=== PATIENT | female | born 1965 | race African-American/Black ===

== ENCOUNTER 2017-04-16 08:56 | Emergency (ER) | payer OTHER ==
[~2017-04-16] VITALS: Ht 167.6 cm; Wt 104.3 kg
[2017-04-16 11:39] VITALS: BP 141/100
== END 2017-04-16 11:39 | disposition home or self-care (01) ==
LOC: ED 08:56
DX: K08.89 Other specified disorders of teeth and supporting structures (principal); I10 Essential (primary) hypertension; F15.10 Other stimulant abuse, uncomplicated
CPT/HCPCS: J1885

== ENCOUNTER 2017-05-10 21:40 | Inpatient (IN) | payer OTHER ==
[~2017-05-10] VITALS: Ht 167.6 cm; Wt 102.0 kg
[2017-05-10 22:46] LABS: BASOPHIL % 1.6 % (0-2); RED CELL DISTRIBUTION WIDTH 12.1 % (11.5-14.5)
[2017-05-10 22:47] LABS: PLATELET COUNT 438 x10^3mcL (130-400)
[2017-05-10 22:48] LABS: CALCIUM 9.4 mg/dL (8.5-10.1); CARBON DIOXIDE 26.1 mmol/L (21-32); CHLORIDE SERUM 105 mmol/L (98-107); CREATININE SERUM 0.9 mg/dL (0.6-1.0); GFR1 > 60 mL/min; GLUCOSE SERUM 97 mg/dL (74-106); POTASSIUM SERUM 3.5 mmol/L (3.5-5.1); SODIUM SERUM 142 mmol/L (136-145)
[2017-05-10 23:17] LABS: ALBUMIN 3.8 g/dL (3.4-5.0); ALKALINE PHOSPHATASE 109 U/L (46-116); ALT/SGPT 53 U/L (14-59); AST/SGOT 32 U/L (15-37); BILIRUBIN TOTAL 0.2 mg/dL (0.20-1.00); TOTAL PROTEIN, SERUM 7.9 g/dL (6.4-8.2)
[2017-05-11 03:42] VITALS: BP 125/83
[2017-05-11 04:01] VITALS: BP 132/91
[2017-05-11 04:11] LABS: CHOLESTEROL/HDL RATIO 4.7
[2017-05-11 04:20] LABS: FREE T4 1.03 ng/dL (0.76-1.46); FREE THYROXINE INDEX 2.7 ug/dL (1.4-4.5); T4(THYROXINE) 7.4 ug/dL (4.7-13.3)
[2017-05-11 04:22] LABS: T3 TOTAL 1.35 ng/mL
[2017-05-11 05:00] LABS: microscopic required? NO
[2017-05-11 05:07] LABS: urine erythrocyte NEGATIVE (NEGATIVE)
[2017-05-11 05:34] LABS: AMPHETAMINE QUAL UR POSITIVE (NEG <=1000)
[2017-05-11 05:56] LABS: BASOPHIL % 0.2 % (0-2); PLATELET COUNT 361 x10^3mcL (130-400); RED CELL DISTRIBUTION WIDTH 13.1 % (11.5-14.5)
[2017-05-11 06:07] VITALS: BP 116/72
[2017-05-11 06:16] LABS: CARBON DIOXIDE 24.3 mmol/L (21-32); CHLORIDE SERUM 105 mmol/L (98-107); CREATININE SERUM 0.9 mg/dL (0.6-1.0); GFR1 > 60 mL/min; GLUCOSE SERUM 217 mg/dL (74-106); MAGNESIUM 1.9 mg/dL (1.8-2.4); PHOSPHOROUS 3.5 mg/dL (2.5-4.9); POTASSIUM SERUM 3.2 mmol/L (3.5-5.1); SODIUM SERUM 141 mmol/L (136-145)
[2017-05-11 09:30] VITALS: BP 117/86
[2017-05-11 18:00] VITALS: BP 98/58
[2017-05-11 21:58] VITALS: BP 107/69
[2017-05-12 05:49] VITALS: BP 120/68
[2017-05-12 06:23] LABS: CALCIUM 9.3 mg/dL (8.5-10.1); CARBON DIOXIDE 22.1 mmol/L (21-32); CHLORIDE SERUM 106 mmol/L (98-107); CREATININE SERUM 0.8 mg/dL (0.6-1.0); GFR1 > 60 mL/min; GLUCOSE SERUM 169 mg/dL (74-106); POTASSIUM SERUM 3.9 mmol/L (3.5-5.1); SODIUM SERUM 140 mmol/L (136-145)
[2017-05-12 09:43] VITALS: BP 111/62
[2017-05-12] MEDS ORDERED: ROBDML PO (14:43)
[2017-05-12] MEDS ORDERED: MEDDP PO (14:43)
[2017-05-12] MEDS ORDERED: MOT800 PO (14:44)
[2017-05-12 14:46] VITALS: BP 111/62
== END 2017-05-12 15:43 | disposition home or self-care (01) | DRG 140 ==
LOC: ED 21:40 → MU 05-11 02:36 → DU 05-11 02:36 → MU 05-11 09:36
PROVIDERS: Emergency Medicine; Family Medicine; ADMIT Family Medicine
DX: J44.1 Chronic obstructive pulmonary disease with (acute) exacerbation (principal); J45.901 Unspecified asthma with (acute) exacerbation; K76.0 Fatty (change of) liver, not elsewhere classified; I10 Essential (primary) hypertension; F15.10 Other stimulant abuse, uncomplicated; F17.210 Nicotine dependence, cigarettes, uncomplicated; Z59.0 Homelessness; R73.03 Prediabetes; M94.0 Chondrocostal junction syndrome [Tietze]; E66.9 Obesity, unspecified; Z68.36 Body mass index [BMI] 36.0-36.9, adult
CPT/HCPCS: 36600; 82962; 83880; 84439; 90732; 94150; G0480; J1885; J2270; J2550; J2920; J2930; J7030; J7613; J7620; J7644; Q0092

== ENCOUNTER 2017-07-29 08:46 | Inpatient (IN) | payer OTHER ==
[~2017-07-29] VITALS: Ht 167.6 cm; Wt 95.7 kg
[~2017-07-29 08:46] MED LIST: MEDDP PO; MOT800 PO; ROBDML PO
--- NOTE | 2017-07-29 08:46 | NUR ---
EMPTY BOTTLE RESTORIL 15 MG #30,POSSIBLY 1/2 MISSING/APPROX 15 TABS (FILL 05/16) EMPTY BOTTLE BACLOFEN 10 MG #60,POSSIBLY 1/2 MISSING/APPROX 30 TABS (FILL 03/29) CALLED POISON CONTROL; SPOKE W/ KIMBERLY. BACLOFEN: CAN CAUSE SEIZURES, HYPOTENSION, BRADYCARDIA, POSS 1ST DEGREE AV BLOCK. CAN USE ATROPINE PRN, PRESSORS RARELY REQUIRED. RESTORIL: WILL HAVE ANTICONVULSANT EFFECT, COUNTERACTING THE BACLFEN. RECOMMENDATIONS: SUPPORTIVE CARE, USUAL BLOOD WORK UP, HOLD OFF ON CHARCOAL (INGESTION TIME APPROX 0430/TOO LATE & PT IS SLEEPY/ASPIRATION RISK)
--- NOTE | 2017-07-29 09:02 | NUR ---
POISON CONTROL RECOMMENDATIONS NOTE PRINTED & GIVEN TO DR. RUIZ.
--- NOTE | 2017-07-29 09:15 | NUR ---
this patient is a 52-year-old female brought into the ER by ambulance with the chief complaint of possible overdose. Per [facility] the patient had a verbal argument with her significant other at approximately 4:30 this morning and then locked herself in the bathroom. The patient possibly consumed half of her baclofen and Restoril pill bottles. see zachary Parra nursing note about her call to poison control for her medication details. Upon assessment at time of arrival in the emergency department the patient is lethargic but opens eyes to verbal stimuli. The patient admits to taking pills but has not answering how many. Patient is currently denying any kind of suicidal or homicidal ideation. Patient is in direct observation of the nurses station & is being closely monitored. Patient's belongings removed & placed in a correctly labeled patient belongings bag and placed at the nurses station. Vital signs are stable. Patient will be closely monitored. Patient is oriented x4.
--- NOTE | 2017-07-29 09:30 | NUR ---
medical screen exam completed by Dr. Bryan.
[2017-07-29 09:33] LABS: BASOPHIL % 0.4 % (0-2); RED CELL DISTRIBUTION WIDTH 13.3 % (11.5-14.5)
[2017-07-29 09:35] LABS: PLATELET COUNT 407 x10^3mcL (130-400)
[2017-07-29 09:46] LABS: ALBUMIN 4.6 g/dL (3.4-5.0); ALKALINE PHOSPHATASE 72 U/L (46-116); ALT/SGPT 31 U/L (14-59); AST/SGOT 29 U/L (15-37); BILIRUBIN TOTAL 0.67 mg/dL (0.20-1.00); CALCIUM 9.8 mg/dL (8.5-10.1); CARBON DIOXIDE 27.1 mmol/L (21-32); CHLORIDE SERUM 101 mmol/L (98-107); CREATININE SERUM 0.8 mg/dL (0.6-1.0); GFR1 > 60 mL/min; GLUCOSE SERUM 89 mg/dL (74-106); SODIUM SERUM 139 mmol/L (136-145)
[2017-07-29 09:49] LABS: POTASSIUM SERUM 2.8 mmol/L (3.5-5.1); TOTAL PROTEIN, SERUM 9.2 g/dL (6.4-8.2)
--- NOTE | 2017-07-29 09:53 | NUR ---
after a reassessment of the patient's level of consciousness she is now more awake and alert at this time. I asked the patient again she took the pills with the intent to kill herself and she said yes at that time but she does not feel suicidal currently.
--- NOTE | 2017-07-29 10:55 | NUR ---
GAVIN STANLEY PHONE NUMBER IS [phone]
[2017-07-29] MEDS ORDERED: BACLOFEN10 MG PO (10:59)
[2017-07-29] MEDS ORDERED: RESTORIL15 MG PO (11:00)
--- NOTE | 2017-07-29 11:03 | NUR ---
REPORT CALLED TO MIN IN ICU DEPARTMENT AT THIS TIME.
--- NOTE | 2017-07-29 11:25 | NUR ---
PT WAS TRANSFER FROM ED VIA [facility]. PT WAS ABLE TO TRANSFER SELF FROM [facility] TO BED BY SELF WITH NO ASSISTS. PT IS AAOX4 ABLE TO FOLLOW VERBAL COMMANDS AND COMMUNICATE NEEDS CLEARLY. BL EQUAL PUPILS, REACTIVE TO LIGHT 3MM, BRISK. PT REPORT ALONSO THAT STARTS FROM TEMPORAL LOBE RADIATING TO OCCIPITAL LOBE, WILL MEDICATE PER EMAR. NO DRAINAGE FROM EENT. TRACHEA AT MIDLINE. PT RECIEVING 2 LO2 VIA ORION. PT REPORT USING O2 AT HOME. BL LUNGS DIMINISH. SYMMETRIC CHEST RISE. NO SIGNS OF SOB OR ACUTE DISTRESS. S1S2 PRESENT UPON AUSCULTATION. PT DENIES CHEST PAIN. SKIN INTACT. BS ACTIVE X4 QUADRANTS. BAD SOFT AND ROUND, NON TENDER PALPATION TO ABD. PT REPORT BM 07/28/17 DIARREAH. NS INFUSING AT 130ML/HR TO RFA. PT IS ABLE TO VOID. PT IS TEARFUL AND CRYING ABOUT HER BF CHEATING ON HER AND NOT HAVING A SUPPORT SYSTEM. PT REPORTS BEING [facility]YS [facility]. PT DENIES WANTING TO HURT SELF OR OTHERS. PT DENIES HAVING A PLAN OF HURTING SELF. ORIENTED PT TO ROOM AND CALL LIGHT. PT DEMOSTRATED UNDERSTANDING. BED AT LOW AND CALL LIGHT WITHIN.
[2017-07-29 12:02] VITALS: BP 135/94
--- NOTE | 2017-07-29 12:08 | NUR ---
UPDATE POISON CONTROL CENTER REGARDING PT AND GAVE LATEST V/S OF EMP 97 AX, BP 135/94 MAP 108, RR 20 RECIEVING 2L O2 VIA ORION AND THAT PT IS AAOX4 ABLE TO FOLLOW VERBAL ORDERS AND COMMANDS. PER STEPHANIE FROM POISON CONTROL THE CASE IS CLOSED.
--- NOTE | 2017-07-29 12:38 | NUR ---
PT C/O OF ALONSO 09/05. WILL MEDICATE PER EMAR.
--- NOTE | 2017-07-29 12:39 | NUR ---
PT REFUSED TYLENOL.
[2017-07-29 12:43] VITALS: BP 135/94
[2017-07-29 13:35] LABS: CHOLESTEROL/HDL RATIO 4.7; MAGNESIUM 2.4 mg/dL (1.8-2.4); PHOSPHOROUS 4.3 mg/dL (2.5-4.9)
[2017-07-29 13:48] LABS: T3 TOTAL 1.83 ng/mL
[2017-07-29 14:09] LABS: FREE T4 1.24 ng/dL (0.76-1.46); FREE THYROXINE INDEX 4.1 ug/dL (1.4-4.5); T4(THYROXINE) 11.3 ug/dL (4.7-13.3)
--- NOTE | 2017-07-29 15:46 | NUR ---
PT WAS ABLE TO AMBULATE TO BEDSIDE COMMODE AND VOID. PT HAD A SEMI SOFT WATERY BM. BED AT LOW AND CALL LIGHT WITHIN REACH.
[2017-07-29 15:58] VITALS: BP 117/62
--- NOTE | 2017-07-29 15:59 | NUR ---
PT IS AAOX4 ABLE TO FOLLOW VERBAL COMMANDS AND COMMUMICATES CLEARLY. BL PUPILS EQUAL AND REACTIVE TO LIGHT 3MM, BRISK. PT ON RA NO SIGNS OF DISTRESS, 99%O2SAT. BL LUNGS CTA. SYMMETRIC CHEST RISE. PT C/O SORE THROAT. BS ACTIVE X4 QUADRANTS. ABD SOFT AND ROUND. NONTENDER PALPATION. NS INFUSING AT 130ML/HR TO RFA. IV SITE WNL. PT DENIES WANTING TO HURT SELF OR OTHERS. WILL CONTINUE TO MONITOR. BED AT LOW AND CALL LIGHT WITHIN REACH.
--- NOTE | 2017-07-29 17:31 | NUR ---
DR. HUANG AT BEDSIDE TO ASSESS PT.
--- NOTE | 2017-07-29 17:40 | NUR ---
DR. HUANG IN NURSING STATION UPDATING PLAN OF MANDY. PER DR. HUANG PT IS NOT SUCICIDAL AT THIS TIME ANS IS CLEAR NOT ON 5150 HOLD.
--- NOTE | 2017-07-29 17:45 | NUR ---
SET DINNER TRAY FOR PT. PT IS ABLE TO EAT BY SELF. NO SIGNS OF ASPIRATION. WILL CONTINUE TO MONITOR. BED AT LOW AND CALL LIGHT WITHIN REACH.
--- NOTE | 2017-07-29 18:55 | NUR ---
RECEIVED REPORT FROM MIN RN, ALL QUESTIONS AND CONCERNS ADDRESSED. WILL ASSUME TOTAL CARE.
--- NOTE | 2017-07-29 19:07 | NUR ---
PT WAS AGITATED AND PULLED IV OUT AND THREATEN TO LEAVE THE FACILITY. ATTEMPTED TO CALM PT DOWN BUT REFUSED. SECUTIRY WAS NOTIFIED AND PT INSISTED LEAVING AGAINST MEDICAL ADVICE. PT DEMAND TO HAVE HER PERSONAL BELONGINGS. ALL PERSONAL BELONGINGS RETURNED TO PT. EXPLAINED RISKS AND BENIFITS TO PT LEAVING AGAINST MEDICAL ADVICE. PT INSISTED LEAVING FACILITY. SECURITY ESSCORT PT OUT OF UNIT. ID BANDS WERE REMOVED. PT SIGNED AMA. DR. CASTANEDA IS AWARE ANDPER DR. CASTANEDA HE WILL NOTIFY COVERING RESIDENT.
--- NOTE | 2017-07-29 19:10 | NUR ---
UPON ASSESSMENT OF THE PATIENT, PATIENT BECAME AGITATED, PULLED IV OUT, AND THREATENED TO LEAVE THE FACILITY. MIN RN, AND MYSELF ATTEMPTED TO CALM PT DOWN BUT PT REFUSED. SECURITY AT BEDSIDE. PT ASKED FOR HER BELONGINGS AND ALL BELONGINGS WERE GIVEN TO THE PATIENT AT THIS TIME. THE RISKS AND BENEFITS WERE EXPLAINING OF LEAVING AGAINST MEDICAL ADVICE. PT VERBALIZED UNDERSTANDING AND SIGNED AMA FORM. PT IS AMBULATORY AND SECURITY ESCORTED PT OUT OF ICU. ID BAND WAS REMOVED. DR. CASTANEDA AND CHARGE NURSE AWARE.
== END 2017-07-29 19:12 | disposition left against medical advice (07) | DRG 812 ==
LOC: ED 08:46 → IC 10:32
PROVIDERS: Emergency Medicine; ADMIT Family Medicine
DX: T43.212A Poisoning by selective serotonin and norepinephrine reuptake inhibitors, intentional self-harm, initial encounter (principal); E72.20 Disorder of urea cycle metabolism, unspecified; F29 Unspecified psychosis not due to a substance or known physiological condition; F33.3 Major depressive disorder, recurrent, severe with psychotic symptoms; J44.9 Chronic obstructive pulmonary disease, unspecified; I10 Essential (primary) hypertension; F17.210 Nicotine dependence, cigarettes, uncomplicated; E11.9 Type 2 diabetes mellitus without complications; E87.6 Hypokalemia; E78.5 Hyperlipidemia, unspecified
CPT/HCPCS: 82962; 83880; 84439; G0480; J3480; J7030; J7040

== ENCOUNTER 2018-09-10 02:46 | Emergency (ER) | payer OTHER ==
[~2018-09-10 02:46] MED LIST changes: +BACLOFEN10 MG PO; +RESTORIL15 MG PO
[2018-09-10 02:50] VITALS: Ht 167.6 cm
[2018-09-10 03:29] VITALS: BP 135/94
== END 2018-09-10 03:42 | disposition home or self-care (01) ==
LOC: ED 02:46
DX: J45.901 Unspecified asthma with (acute) exacerbation (principal); J44.9 Chronic obstructive pulmonary disease, unspecified; I10 Essential (primary) hypertension
CPT/HCPCS: J1885; J7512; J7613; J7644

== ENCOUNTER 2018-11-28 09:29 | Emergency (ER) | payer OTHER ==
[~2018-11-28] VITALS: Ht 167.6 cm; Wt 106.6 kg
[2018-11-28 09:31] VITALS: Ht 167.6 cm; Wt 106.6 kg
[2018-11-28 10:31] LABS: BASOPHIL % 0.2 % (0-2); PLATELET COUNT 370 x10^3mcL (130-400); RED CELL DISTRIBUTION WIDTH 13.4 % (11.5-14.5)
[2018-11-28 10:37] LABS: CALCIUM 8.8 mg/dL (8.5-10.1); CARBON DIOXIDE 29.8 mmol/L (21-32); CHLORIDE SERUM 104 mmol/L (98-107); CREATININE SERUM 0.9 mg/dL (0.6-1.0); GFR1 > 60 mL/min; GLUCOSE SERUM 108 mg/dL (74-106); POTASSIUM SERUM 3.5 mmol/L (3.5-5.1); SODIUM SERUM 140 mmol/L (136-145)
[2018-11-28 10:48] LABS: ALBUMIN 3.2 g/dL (3.4-5.0); ALKALINE PHOSPHATASE 87 U/L (46-116); ALT/SGPT 35 U/L (14-59); AST/SGOT 19 U/L (15-37); BILIRUBIN TOTAL 0.24 mg/dL (0.20-1.00); CHOLESTEROL 148 mg/dL (<200); HDL CHOLESTEROL 35 mg/dL (40-60); TOTAL PROTEIN, SERUM 7.3 g/dL (6.4-8.2)
[2018-11-28 14:28] VITALS: BP 132/90
== END 2018-11-28 14:28 | disposition home or self-care (01) ==
LOC: ED 09:29
PROVIDERS: Emergency Medicine
DX: J45.901 Unspecified asthma with (acute) exacerbation (principal); R60.0 Localized edema; F17.210 Nicotine dependence, cigarettes, uncomplicated; J44.9 Chronic obstructive pulmonary disease, unspecified; Z71.6 Tobacco abuse counseling
CPT/HCPCS: 36415; 82962; 83880; 87804; 99406; J7512; J7613; Q0092

== ENCOUNTER 2020-07-06 14:07 | Emergency (ER) | payer OTHER, SELFPAY ==
[~2020-07-06] VITALS: Ht 167.6 cm; Wt 95.3 kg
[~2020-07-06 14:07] MED LIST changes: +GUAIFENESI100 MG/5 M PO; +LEVAQUIN500 M1 PO
[2020-07-06 14:09] VITALS: Ht 167.6 cm; Wt 95.3 kg
[2020-07-06 16:34] VITALS: BP 136/72
== END 2020-07-06 17:25 | disposition left against medical advice (07) ==
LOC: ED 14:07
DX: J45.909 Unspecified asthma, uncomplicated (principal); I10 Essential (primary) hypertension; F17.210 Nicotine dependence, cigarettes, uncomplicated; Z20.828 Contact with and (suspected) exposure to other viral communicable diseases; Z71.6 Tobacco abuse counseling
CPT/HCPCS: 99406; U0003-CS